=== PATIENT | female | born 1985 | race Two or more races ===

== ENCOUNTER 2025-01-16 08:46 | Outpatient (CLI) | payer OTHER | END 2025-01-16 08:48 | disposition home or self-care (01) | LOC: RAD 08:46 | PROVIDERS: ATTEND Surgery | DX: K59.09 Other constipation (principal) ==

== ENCOUNTER 2025-02-22 13:40 | Emergency (ER) | payer OTHER ==
[~2025-02-22] VITALS: Ht 160 cm; Wt 63.5 kg
== END 2025-02-22 16:58 | disposition home or self-care (01) ==
LOC: ER 13:40
DX: K59.01 Slow transit constipation (principal)

== ENCOUNTER 2025-02-27 08:58 | Inpatient (IN) | payer OTHER ==
[~2025-02-27] VITALS: Ht 160 cm; Wt 63.5 kg
--- NOTE | 2025-02-27 09:14 | NUR ---
SE RECIBE PACIENTE ALERTA Y ORIENTADA X3 REFIERE VENIR POR DISTENCION ABDOMINAL DOLOR ABDOMINAL QUE IRRADIA HACIA LA ESPALDA Y ESTRIMIENITO. RECIBCIO ORDEN VERBAL TELEFONICA DE BAÑUELOS KAEL GONSALEZ PARA VISITAR EMERGENCIAS
[2025-02-27] MEDS ORDERED: 0.9 % SODIUM CHLORIDE 1,000 ML IV SCH (09:25)
[2025-02-27] MEDS ORDERED: BARIUM SULFATE 450 ML ORAL.SUSP PO ONE (09:32)
--- NOTE | 2025-02-27 09:39 | NUR ---
SE ORIENTA A PACIENTE SOBRE TX MEDICO, REFIERE ENTENDER. SE COLECTAN MUESTRAS DE LABORATORIO BAJO MEDIDAS ASEPTICAS. SE ADMINISTRA IV'S LILLY ORDEN MEDICA. SE COORDINA CT. PACIENTE MANEJADA POR .
[2025-02-27 09:56] LABS: BASO % 1.6 % (0.1-1.2); EOS # 0.03 (0.04-0.54); EOS % 0.5 % (0.7-7.0); LYMPH # 1.79 (1.18-3.74); LYMPH % 31.2 % (19.3-53.1); MEAN PLATELET VOLUME 9.30 fl (9.4-12.4); MONO # 0.57 (0.24-0.82); MONO % 9.9 % (4.7-12.5); NEUT # 3.25 (1.56-6.13); NEUT % 56.6 % (34.0-71.1); RED CELL DISTRIBUTION WIDTH 13.9 % (11.6-14.4)
[2025-02-27 10:24] LABS: BUN CREA RATIO 13.0 (7.0-25.0); CREATININE SERUM 0.82 mg/dL (0.55-1.02); GFR 76.82; GLUCOSE FASTING 89.0 mg/dL (65-100); OSMOLALITY SERUM 275.0 MOSM/KG (275-295)
[2025-02-27 10:31] LABS: URINE APPEARANCE Clear; URINE BILIRRUBIN Negative (NEGATIVE); URINE BLOOD Negative; URINE COLOR Yellow; URINE GLUCOSE Negative (NEGATIVE); URINE KETONE Negative (NEGATIVE); URINE LEUKOCYTE Negative; URINE NITRATE Negative; URINE PROTEIN Negative (NEGATIVE); URINE UROBILINOGEN 0.2 E.U./dl
[2025-02-27 10:36] LABS: URINE BACTERIA 111.4 uL (0.0-1933); URINE EPITHELIAL CELLS 3.2 uL (0.0-38.8)
[2025-02-27 10:56] LABS: URINE CAST 0.00 uL (0.0-1.40); URINE RBC 0.4 uL (0.0-20.8); URINE WBC 0 uL (0.0-23.2)
[2025-02-27] MEDS ORDERED: RINGERS SOLUTION,LACTATED 1,000 ML IV SCH (15:15)
[2025-02-27] MEDS ORDERED: ONDANSETRON HCL 2 MG/ML VIAL IV PRN (15:15)
[2025-02-27 15:52] VITALS: BP 130/89
[2025-02-27] MEDS ORDERED: HYOSCYAMINE SULFATE 0.125 MG TAB.SUBL ONE (16:05)
[2025-02-27] MEDS ORDERED: METOCLOPRAMIDE HCL 5 MG/ML VIAL ONE (16:05)
[2025-02-27] MEDS ORDERED: METOCLOPRAMIDE HCL 5 MG/ML VIAL IV SCH (17:00)
[2025-02-27] MEDS ORDERED: HYOSCYAMINE SULFATE 0.125 MG TAB.SUBL SL SCH (17:00)
[2025-02-27] MEDS ORDERED: FAMOTIDINE/PF 20 MG/2 ML VIAL IV SCH (21:00)
[2025-02-28 01:36] VITALS: BP 102/71; O2SAT 98
[2025-02-28 08:12] VITALS: BP 97/64; O2SAT 96
[2025-02-28] MEDS ORDERED: HYOSCYAMINE SULFATE 0.125 MG TAB.SUBL SL PRN (08:58)
[2025-02-28 17:37] VITALS: BP 102/70; O2SAT 97
[2025-02-28] MEDS ORDERED: BUPROPION HCL 150 MG TABLET.SA PO SCH (21:00)
[2025-03-01 01:14] VITALS: BP 92/65; O2SAT 100
[2025-03-01] MEDS ORDERED: NA PHOS,M-B/NA PHOS,DI-BA 1 BOTTLE ENEMA RECTAL STA (07:46)
[2025-03-01 08:00] VITALS: BP 96/62; O2SAT 97
[2025-03-01] MEDS ORDERED: ACETAMINOPHEN 500 MG GEL..CAP PO SCH ×2 (08:00→14:00)
[2025-03-01] MEDS ORDERED: ONDANSETRON HCL 2 MG/ML VIAL IV PRN (12:57)
[2025-03-01] MEDS ORDERED: SIMETHICONE 125 MG CAPSULE PO SCH (13:00)
[2025-03-01 13:22] VITALS: BP 119/77; O2SAT 99
[2025-03-01 13:56] LABS: BASO % 0.9 % (0.1-1.2); EOS # 0.01 (0.04-0.54); EOS % 0.1 % (0.7-7.0); LYMPH # 1.43 (1.18-3.74); LYMPH % 17.9 % (19.3-53.1); MEAN PLATELET VOLUME 9.50 fl (9.4-12.4); MONO # 0.60 (0.24-0.82); MONO % 7.5 % (4.7-12.5); NEUT # 5.84 (1.56-6.13); NEUT % 73.3 % (34.0-71.1); RED CELL DISTRIBUTION WIDTH 14.2 % (11.6-14.4)
[2025-03-01 14:18] LABS: BUN CREA RATIO 10.0 (7.0-25.0); CREATININE SERUM 0.7 mg/dL (0.55-1.02); GFR 92.21; GLUCOSE FASTING 123.0 mg/dL (65-100); OSMOLALITY SERUM 281.0 MOSM/KG (275-295)
[2025-03-01 16:00] VITALS: BP 97/64; O2SAT 95
[2025-03-02] VITALS: BP 98/64; O2SAT 96
[2025-03-02 08:19] VITALS: BP 105/68; O2SAT 95
[2025-03-02] MEDS ORDERED: LACTULOSE 20 G/30 ML BLIST.PACK PO SCH (09:00)
[2025-03-02] MEDS ORDERED: LACTOBACILLUS ACIDOPHILUS 1 CAP CAP PO SCH (09:00)
== END 2025-03-02 11:46 | disposition home or self-care (01) | DRG 392 ==
LOC: ER 09:08 → SEC-K 16:17 → SURH 16:17 → SURG 17:41 → SURH 18:12
PROVIDERS: Emergency Medicine; ADMIT Surgery; ATTEND Surgery
PROC: BW21ZZZ Computerized Tomography (CT Scan) of Abdomen and Pelvis (ICD-10-PCS; principal; 2025-02-27)
PROC: BW4GZZZ Ultrasonography of Pelvic Region (ICD-10-PCS; 2025-02-28)
PROC: 0DJD8ZZ Inspection of Lower Intestinal Tract, Via Natural or Artificial Opening Endoscopic (ICD-10-PCS; 2025-03-01)
DX: K59.09 Other constipation (principal); K56.699 Other intestinal obstruction unspecified as to partial versus complete obstruction; K64.4 Residual hemorrhoidal skin tags; K59.01 Slow transit constipation